=== PATIENT | female | born 1995 | race Caucasian/White ===

== ENCOUNTER 2021-01-14 20:45 | Inpatient (IN) | payer OTHER ==
[2021-01-14] MEDS ORDERED: ELECTROLYTE-148 SOLN 500 ML IV ONE (23:14)
[2021-01-14 23:16] LABS: BASO % 0.2 % (0-2.0); EOS % 0.2 % (0-4.5); HEMATOCRIT 33.3 % (32.4-45.2); HEMOGLOBIN 11.3 GM/dL (10.7-15.3); LYMPH % 11.6 % (8-40); MCH 27.6 pg (25.7-33.7); MCHC 33.9 g/dl (32.0-36.0); MEAN CELL VOLUME 81.6 fl (80-96); MEAN PLT VOLUME 8.9 fl (7.5-11.1); MONO % 7.2 % (3.8-10.2); NEUT % 80.8 % (42.8-82.8); PLATELET COUNT 151 10^3/uL (134-434); RBC 4.08 M/mm3 (3.60-5.2); RDW 14.3 % (11.6-15.6); WHITE BLOOD COUNT 12.6 K/mm3 (4.0-10.0)
[2021-01-14 23:28] LABS: INR 0.96 (0.83-1.09); PROTHROMBIN TIME (PATIENT) 11.2 SEC (9.7-13.0)
[2021-01-14 23:31] LABS: ACTIVATED PTT 25.3 SECONDS (25.2-36.5)
[2021-01-14 23:39] LABS: BLOOD UREA NITROGEN 7.5 mg/dL (7-18); CALCIUM 8.7 mg/dL (8.5-10.1)
[2021-01-14 23:42] LABS: CREATININE 0.5 mg/dL (0.55-1.3)
[2021-01-15 00:02] VITALS: BMI 26.0
[2021-01-15] MEDS: ELECTROLYTE-148 SOLN 1,000 ML IV SCH ×2 (00:10→09:15)
[2021-01-15] MEDS ORDERED: BUTORPHANOL TARTRATE 2 MG/ML VIAL ONE ×2 (01:15→06:47)
[2021-01-15] MEDS ORDERED: BUTORPHANOL TARTRATE 1 MG/ML VIAL IVPB ONE ×2 (01:15→06:45)
[2021-01-15] MEDS ORDERED: PROMETHAZINE HCL 25 MG/1 ML VIAL IVPB ONE ×2 (01:15→06:45)
[2021-01-15] MEDS ORDERED: PROMETHAZINE HCL 25 MG/1 ML VIAL ONE ×2 (01:15→06:47)
[2021-01-15] MEDS ORDERED: OXYTOCIN 30 UNITS in 0.9% NS 30 UNIT/500 ML INFUS.BAG IVPB SCH (05:30)
[2021-01-15] MEDS ORDERED: FENTANYL/BUPIVACAINE/NS/PF - PCEA - 50 ML DISP.SYRIN EP ONE (09:06)
[2021-01-15] MEDS ORDERED: NALOXONE HCL 0.4 MG/ML VIAL IVPUSH PRN (09:18)
[2021-01-15] MEDS ORDERED: BUPIVACAINE HCL/PF 0.25% (2.5MG/ML) 10 ML VIAL ONE (09:25)
[2021-01-15] MEDS: FENTANYL/BUPIVACAINE/NS/PF - PCEA - 50 ML DISP.SYRIN EP SCH (09:40)
[2021-01-15] MEDS ORDERED: LIDOCAINE HCL/EPINEPHRINE/PF 10 ML VIAL ONE (12:09)
[2021-01-15] MEDS ORDERED: morphine SULFATE (PF) 1 MG/2 ML SYRINGE ONE ×2 (12:26)
[2021-01-15 13:10] LABS: CORD HCO3 24.8 mmHg (20-29); CORD PCO2 52.8 mmHg (30-78); CORD pH 7.289 (7.14-7.44)
[2021-01-15 13:13] LABS: CORD BASE EXCESS -2.1 mmol/L (0-2); CORD HCO3 23.3 mmHg (20-29); CORD PCO2 42.7 mmHg (30-78); CORD pH 7.355 (7.14-7.44)
[2021-01-15] MEDS ORDERED: IBUPROFEN 800 MG/8 ML IJ IVPB PRN (13:19)
[2021-01-15] MEDS ORDERED: BENZOCAINE 28 GM HEMORRHOIDAL OINTMENT TP PRN (13:19)
[2021-01-15] MEDS ORDERED: IBUPROFEN 600 MG TABLET (FP) PO PRN (13:19)
[2021-01-15] MEDS ORDERED: SENNOSIDES/DOCUSATE COMBO (SENNA PLUS) TABLET (UD) PO PRN (13:19)
[2021-01-15] MEDS ORDERED: METHYLERGONOVINE MALEATE 0.2 MG/1 ML AMP IM PRN (13:19)
[2021-01-15] MEDS ORDERED: WITCH HAZEL 50% (TUCKS) 40 PAD/JAR PAD TP PRN (13:19)
[2021-01-15] MEDS ORDERED: ACETAMINOPHEN 325 MG TABLET (FP) PO PRN (13:19)
[2021-01-15] MEDS ORDERED: BENZOCAINE 20% 57 GM BOTTLE TP PRN (13:19)
[2021-01-15] MEDS ORDERED: oxyCODONE HCL 5 MG TABLET PO PRN ×2 (13:19)
[2021-01-15] MEDS ORDERED: OXYTOCIN 20 UNITS in 0.9% NS 20 UNIT/1,000 ML INFUS.BAG IV ONE (13:24)
[2021-01-15] MEDS ORDERED: OXYTOCIN 20 UNITS in 0.9% NS 20 UNIT/1,000 ML INFUS.BAG IV SCH (13:30)
[2021-01-16 08:41] LABS: BASO % 0.3 % (0-2.0); EOS % 0.2 % (0-4.5); HEMATOCRIT 27.7 % (32.4-45.2); HEMOGLOBIN 9.6 GM/dL (10.7-15.3); MCH 28.4 pg (25.7-33.7); MCHC 34.5 g/dl (32.0-36.0); MEAN CELL VOLUME 82.1 fl (80-96); NEUT % 79.5 % (42.8-82.8); PLATELET COUNT 128 10^3/uL (134-434); RBC 3.38 M/mm3 (3.60-5.2); RDW 14.6 % (11.6-15.6); WHITE BLOOD COUNT 10.6 K/mm3 (4.0-10.0)
[2021-01-16] MEDS ORDERED: ACETAMINOPHEN 650 MG/20.3 ML ORAL SOLUTION (CUPS) PO PRN (09:52)
[2021-01-16] MEDS ORDERED: ACETAMINOPHEN 325 MG TABLET (FP) PO PRN (09:52)
[2021-01-16] MEDS: PRENATAL VITAMINS W/ FOLIC ACID TABLET (FP) PO SCH (09:58)
[2021-01-16] MEDS ORDERED: BISACODYL 10 MG SUPP.RECT RC PRN (13:19)
[2021-01-16] MEDS: IBUPROFEN 100 MG/5 ML UNIT DOSE CUPS PO PRN (15:23)
[2021-01-16] MEDS: SIMETHICONE 80 MG TAB.CHEW (FP) PO PRN (15:24)
[2021-01-16] MEDS: FENTANYL/BUPIVACAINE/NS/PF - PCEA - 50 ML DISP.SYRIN EP SCH (16:38)
[2021-01-17] MEDS: IBUPROFEN 100 MG/5 ML UNIT DOSE CUPS PO PRN ×3 (00:48→18:34)
[2021-01-17] MEDS: SIMETHICONE 80 MG TAB.CHEW (FP) PO PRN (00:48)
[2021-01-17] MEDS: PRENATAL VITAMINS W/ FOLIC ACID TABLET (FP) PO SCH (10:08)
[2021-01-17 15:21] LABS: POC NITRAZINE NEG
[2021-01-18] MEDS: ELECTROLYTE-148 SOLN 1,000 ML IV SCH (00:57)
[2021-01-18 06:21] LABS: BASO % 0.2 % (0-2.0); EOS % 2.7 % (0-4.5); HEMATOCRIT 26.6 % (32.4-45.2); LYMPH % 21.8 % (8-40); MCHC 33.7 g/dl (32.0-36.0); MEAN CELL VOLUME 83.1 fl (80-96); MEAN PLT VOLUME 8.7 fl (7.5-11.1); MONO % 6.3 % (3.8-10.2); PLATELET COUNT 144 10^3/uL (134-434); RDW 14.3 % (11.6-15.6)
[2021-01-18] MEDS: IBUPROFEN 100 MG/5 ML UNIT DOSE CUPS PO PRN (09:22)
[2021-01-18] MEDS: SIMETHICONE 80 MG TAB.CHEW (FP) PO PRN (09:23)
[2021-01-18 09:48] VITALS: BP 100/61; PULSE 86; TEMP 98
[2021-01-18] MEDS: PRENATAL VITAMINS W/ FOLIC ACID TABLET (FP) PO SCH ×2 (11:43→11:54)
== END 2021-01-18 13:00 | disposition home or self-care (01) | DRG 788 ==
LOC: JDEL 20:45 → JLDR 22:00 → J3W 01-15 14:35
PROVIDERS: ADMIT Obstetrics & Gynecology; ATTEND Obstetrics & Gynecology
PROC: 10D00Z1 Extraction of Products of Conception, Low, Open Approach (ICD-10-PCS; principal; 2021-01-15)
DX: O48.0 Post-term pregnancy (principal); Z3A.40 40 weeks gestation of pregnancy; O76 Abnormality in fetal heart rate and rhythm complicating labor and delivery; O69.81X0 Labor and delivery complicated by cord around neck, without compression, not applicable or unspecified; Z37.0 Single live birth
CPT/HCPCS: 36415; 36600; 59025; 80048; 82803; 83986-QW; 85025; 85610; 85730; 86780; 86850; 86900; 86901; 88307-TC; C9803; U0003; U0005